=== PATIENT | male | born 1990 | race Caucasian/White ===

== ENCOUNTER 2016-08-23 22:15 | Emergency (ER) | payer OTHER ==
[~2016-08-23] VITALS: Ht 167.6 cm; Wt 102.1 kg
[~2016-08-23 22:15] MED LIST: AFRIN,GENASAL D15 ML BOTH NARES; NAPROSYN500 MG PO; NOHOMEMEDS; PEN-VEE K,VEET500 MG PO; PREDNISONE50 MG PO
[2016-08-23] MEDS ORDERED: KETOCONAZOLE60 GM TP (23:15)
[2016-08-23 23:31] VITALS: BP 143/108
== END 2016-08-23 23:33 | disposition home or self-care (01) ==
LOC: EME 22:15
DX: B35.9 Dermatophytosis, unspecified (principal); F17.200 Nicotine dependence, unspecified, uncomplicated
CPT/HCPCS: 99281; 99283

== ENCOUNTER 2017-01-04 21:14 | Emergency (ER) | payer OTHER ==
[~2017-01-04] VITALS: Ht 165.1 cm; Wt 96.4 kg
[~2017-01-04 21:14] MED LIST changes: +KETOCONAZOLE60 GM TP
[2017-01-04] MEDS ORDERED: BACTRIM,SEPT1 TABLET PO (22:49)
[2017-01-04] MEDS ORDERED: MOTRIN600 MG PO (22:49)
[2017-01-04 22:57] VITALS: BP 158/100
== END 2017-01-04 22:58 | disposition home or self-care (01) ==
LOC: EME 21:14
DX: L02.31 Cutaneous abscess of buttock (principal)
CPT/HCPCS: 99281; 99283

== ENCOUNTER 2017-03-05 15:17 | Emergency (ER) | payer OTHER ==
[~2017-03-05] VITALS: Ht 165.1 cm; Wt 94.8 kg
[~2017-03-05 15:17] MED LIST changes: +BACTRIM,SEPT1 TABLET PO; +MOTRIN600 MG PO
[2017-03-05 16:15] VITALS: BP 140/91
== END 2017-03-05 16:15 | disposition home or self-care (01) ==
LOC: EME 15:17
DX: R25.3 Fasciculation (principal); Z72.820 Sleep deprivation; Z72.0 Tobacco use
CPT/HCPCS: 99281; 99283

== ENCOUNTER 2017-03-17 22:31 | Emergency (ER) | payer OTHER ==
[~2017-03-17] VITALS: Ht 162.6 cm; Wt 94.8 kg
[2017-03-18] MEDS ORDERED: NAPROSYN500 MG PO (00:29)
[2017-03-18 00:43] VITALS: BP 124/67
== END 2017-03-18 00:45 | disposition home or self-care (01) ==
LOC: EME 22:31
DX: S93.402A Sprain of unspecified ligament of left ankle, initial encounter (principal); X50.1XXA Overexertion from prolonged static or awkward postures, initial encounter; Y93.K1 Activity, walking an animal; Y92.480 Sidewalk as the place of occurrence of the external cause
CPT/HCPCS: 73610; 99281; 99284

== ENCOUNTER 2017-12-16 14:56 | Emergency (ER) | payer OTHER ==
[~2017-12-16] VITALS: Ht 165.1 cm; Wt 88.7 kg
[2017-12-16 16:38] LABS: HEMATOCRIT 45.8 % (38.0-50.0); MCH 28.7 PG (29.0-34.0); MCHC 34.9 G/DL (30.0-36.0); MCV 82.1 FL (86-99); PLATELET COUNT 244 K/uL (156-360); RBC DIS.WIDTH-CV 13.2 % (11.8-14.6); RBC DIS.WIDTH-SD 39.1 % (39-53); RED BLOOD COUNT 5.58 M/uL (4.00-5.50); WHITE BLOOD COUNT 10.6 K/uL (4.1-10.2)
[2017-12-16 16:49] LABS: CHLORIDE 104 mEq/L (99-109); POTASSIUM 3.8 mEq/L (3.7-5.4); SODIUM 141 mEq/L (136-147)
[2017-12-16 16:52] LABS: GLUCOSE 83 mg/dL (70-99); TOTAL PROTEIN 7.4 g/dL (6.4-8.3)
[2017-12-16 16:54] LABS: TOTAL BILIRUBIN 1.2 mg/dL (0.0-1.0)
[2017-12-16 16:55] LABS: ALKALINE PHOSPHATASE 72 IU/L (3-129); CREATININE 0.9 mg/dL (0.6-1.3); GFR ESTIMATE (CALCULATED) > 59 mL/min/ (58.99-99999)
[2017-12-16 16:57] LABS: AST (GOT) 36 IU/L (2-34); UREA NITROGEN (BUN) 10 mg/dL (9-23)
[2017-12-16 16:58] LABS: ALT (GPT) 64 IU/L (3-49)
[2017-12-16 17:04] LABS: TROP-I INTERPRETATION NEGATIVE; TROPONIN-I < 0.01 ng/mL (0.0-0.30)
[2017-12-16 17:11] LABS: APPEARANCE CLEAR ((CLEAR)); BILIRUBIN NEGATIVE; BLOOD NEGATIVE; COLOR YELLOW ((YELLOW)); GLUCOSE (STRIP) NEGATIVE; KETONES 80; LEUKOCYTES NEGATIVE; NITRITE NEGATIVE; PROTEIN (STRIP) 30; SPECIFIC GRAVITY 1.021 (1.000-1.030); UCUL ADDED? NO
[2017-12-16 17:17] LABS: D-DIMER ELISA < 150.00 ng/mLDDU (<230)
[2017-12-16 17:22] LABS: AMPHETAMINE NEGATIVE (500 ng/mL); BARBITURATES NEGATIVE (200 ng/mL); BENZODIAZEPINES NEGATIVE (150 ng/mL); BUPRENORPHINE NEGATIVE (10 ng/mL); COCAINE NEGATIVE (150 ng/mL); METHADONE NEGATIVE (200 ng/mL); METHAMPHETAMINE NEGATIVE (500 ng/mL); OPIATES (MORPHINE) NEGATIVE (100 ng/mL); OXYCODONE NEGATIVE (100 ng/mL); PHENCYCLIDINE NEGATIVE (25 ng/mL); PROPOXYPHENE NEGATIVE (300 ng/mL); THC CANNABINOIDS PRESUMPTIVE POSITIVE (50 ng/mL); TRICYCLIC ANTIDEPRESSANTS NEGATIVE (300 ng/mL)
[2017-12-16 18:00] LABS: SERUM ETHYL ALCOHOL < 10 mg/dL
[2017-12-16] MEDS ORDERED: ATARAX,VISTARIL25 MG PO (19:06)
[2017-12-16 19:15] VITALS: BP 141/83
== END 2017-12-16 19:17 | disposition home or self-care (01) ==
LOC: EME 14:56
PROVIDERS: Physician Assistant
DX: F41.9 Anxiety disorder, unspecified (principal); F32.9 Major depressive disorder, single episode, unspecified; F43.9 Reaction to severe stress, unspecified; F43.23 Adjustment disorder with mixed anxiety and depressed mood; F12.90 Cannabis use, unspecified, uncomplicated; F17.200 Nicotine dependence, unspecified, uncomplicated; F90.9 Attention-deficit hyperactivity disorder, unspecified type; Z82.49 Family history of ischemic heart disease and other diseases of the circulatory system
CPT/HCPCS: 80053; 81003; 84484; 84999; 85027; 85379; 90839; 93005; 99281; 99285; G0480